=== PATIENT | female | born 1985 | race Caucasian/White ===

== ENCOUNTER 2018-04-24 12:00 | Emergency (ER) | payer MEDICAID ==
[~2018-04-24] VITALS: Ht 160 cm; Wt 55.8 kg
[2018-04-24 12:17] VITALS: BP 109/68
== END 2018-04-24 13:24 | disposition home or self-care (01) ==
LOC: ER 12:00
DX: O99.321 Drug use complicating pregnancy, first trimester (principal); Z3A.01 Less than 8 weeks gestation of pregnancy; F15.90 Other stimulant use, unspecified, uncomplicated; Z88.0 Allergy status to penicillin; Z56.0 Unemployment, unspecified
CPT/HCPCS: 99281